=== PATIENT | male | born 1965 | race Caucasian/White ===

== ENCOUNTER → 2016-11-06 | Outpatient (CLI) | payer OTHER ==
[~2016-11-06] VITALS: Ht 188 cm; Wt 88.5 kg
[~2016-11-06] MED LIST: NS 1,000 ML IV SCH; PROPOFOL 200 MG/20 ML VIAL As Ordered ONE
--- NOTE | 2016-11-06 14:33 | ROOR ---
Patient Name: Rodríguez Chávez Procedure Date: 11/06/2016 2:15 PM Date of : 1965 Age: 51 Room: [facility] Gender: Male Note Status: Finalized Procedure: Colonoscopy to Cecum Indications: Screening for colorectal malignant neoplasm Providers: Blaze Terrell MD Referring MD: Joleen Rodas DO Requesting Provider: Medicines: Monitored Anesthesia Care Complications: No immediate complications. Procedure: Pre-Anesthesia Assessment: - The heart rate, respiratory rate, oxygen saturations, blood pressure, adequacy of pulmonary ventilation, and response to care were monitored throughout the procedure. The Colonoscope was introduced through the anus and advanced to the cecum, identified by appendiceal orifice and ileocecal valve. The colonoscopy was performed without difficulty. The patient tolerated the procedure well. The quality of the bowel preparation was good. Findings: The perianal and digital rectal examinations were normal. Non-bleeding internal hemorrhoids were found during retroflexion. The hemorrhoids were small and Grade I (internal hemorrhoids that do not prolapse). The exam was otherwise without abnormality on direct and retroflexion views. Impression: - Non-bleeding internal hemorrhoids. - The examination was otherwise normal on direct and retroflexion views. - No specimens collected. - The exam was otherwise normal to the cecum. Recommendation: - Discharge patient to home. - Continue present medications. - Repeat colonoscopy in 10 years for screening purposes. - Return to referring physician. - The findings and recommendations were discussed with the patient's family. Blaze Terrell MD Blaze Terrell MD 11/06/2016 2:33:30 PM This report has been signed electronically. Number of Addenda: 0 Note Initiated On: 11/06/2016 2:15 PM Estimated Blood Loss: Estimated blood loss: none.
[2016-11-06 15:00] VITALS: BP 137/86
== END ==
LOC: M OPP 12:52
PROVIDERS: ATTEND Internal Medicine Gastroenterology
DX: Z12.11 Encounter for screening for malignant neoplasm of colon (principal); K64.0 First degree hemorrhoids; R06.83 Snoring; G47.30 Sleep apnea, unspecified; Z88.5 Allergy status to narcotic agent; Z87.891 Personal history of nicotine dependence
CPT/HCPCS: 99156; G0121

== ENCOUNTER → 2021-06-06 | Outpatient (REF) | payer OTHER | LOC: M LAB REF 19:07 | PROVIDERS: ATTEND Surgery | DX: L72.0 Epidermal cyst (principal) ==

== ENCOUNTER → 2024-09-04 | Outpatient (CLI) | payer OTHER | LOC: M PLAIMG 11:22 | PROVIDERS: ATTEND Internal Medicine | DX: M54.50 Low back pain, unspecified (principal) ==